=== PATIENT | female | born 1955 | race Caucasian/White ===

== ENCOUNTER 2020-08-18 08:13 | Day surgery (SDC) | payer OTHER, SELFPAY ==
[2020-08-13 14:58] VITALS: BMI 37.7
--- NOTE | 2020-08-14 08:47 | HO.ANESPROP2 ---
Documented by User: Indu Bañuelos 08/14/20 08:53 HPI - Anesthesia Eval Consult details Narrative: 64yo F for colonoscopy: screening [facility] Past Medical History Medical History (Updated 08/18/20 @ 09:45 by Deborah Stewart) Arthritis Back pain Cerebral aneurysm Heartburn History of Price's palsy Increased BMI (body mass index) Leaky heart valve Peripheral neuropathy PONV (postoperative nausea and vomiting) Seasonal allergies Sleep apnea Venous insufficiency of lower extremity Wrist fracture, left Family History Family History (Updated 08/13/20 @ 15:01 by Elle Barron) Other PONV (postoperative nausea and vomiting) Surgical History Surgical History (Updated 08/13/20 @ 14:54 by Elle Barron) Hx of colonoscopy S/P right knee arthroscopy Social History Social History Smoking Status: Former smoker Smoking Quit Date: 1999 Use of substances other than those prescribed or required for medical reasons: No Advance Directives: No Advance Directives Information Provided: No Advance Directives on File: No Meds Allergies Allergy/AdvReac Type Severity Reaction Status Date / Time levofloxacin [From Levaquin] Allergy Rash Verified 08/13/20 14:55 Home Medications Medication Instructions Recorded Confirmed Type calcium 600 mg PO DAILY 08/13/20 08/13/20 History glucosamine sulfate [Glucosamine] 750 mg PO DAILY 08/13/20 08/13/20 History Exam Exam Date and Time: August 14, 2020 0847 Height,Weight and Vital Signs: Height 5 ft 10 in Weight 119.295 kg Narrative Narrative: ECHO 04/2020: Mild AR, Mild TR, trace to mild MR, LVEF 60-65%, no RWMA, Gr 1 DD Assessment and Plan Assessment Anesthesia Assessment: Chart Reviewed Documented by User: Deborah Stewart 08/18/20 09:47 [facility] Past Medical History Medical History (Updated 08/18/20 @ 09:45 by Deborah Stewart) Arthritis Back pain Cerebral aneurysm Heartburn History of Price's palsy Increased BMI (body mass index) Leaky heart valve Peripheral neuropathy PONV (postoperative nausea and vomiting) Seasonal allergies Sleep apnea Venous insufficiency of lower extremity Wrist fracture, left Family History Family History (Updated 08/13/20 @ 15:01 by Elle Barron) Other PONV (postoperative nausea and vomiting) Surgical History Surgical History (Updated 08/13/20 @ 14:54 by Elle Barron) Hx of colonoscopy S/P right knee arthroscopy History of Problems with Anesthesia: No Social History Social History Smoking Status: Former smoker Smoking Quit Date: 1999 Use of substances other than those prescribed or required for medical reasons: No Advance Directives: No Advance Directives Information Provided: No Advance Directives on File: No Meds Allergies Allergy/AdvReac Type Severity Reaction Status Date / Time levofloxacin [From Levaquin] Allergy Rash Verified 08/13/20 14:55 Home Medications Medication Instructions Recorded Confirmed Type calcium 600 mg PO DAILY 08/13/20 08/13/20 History glucosamine sulfate [Glucosamine] 750 mg PO DAILY 08/13/20 08/13/20 History Exam Height,Weight and Vital Signs: Vital Signs Temp Pulse Resp BP Pulse Ox 08/18/20 09:35 98.7 F 82 16 153/84 H 98 Airway Mallampati Class: II TM Dist: >3cm Neck ROM: Full Partial: Lower (Permanent bridge) Heart: RRR. No murmur heard Lungs: CTAB Assessment and Plan Assessment Anesthesia Assessment: Anesthesia Plan Discussed and Chart Reviewed Final Anesthetic Review NPO: Yes ASA Class: III Final Preanesthetic Review: No Changes in Pt Med Stat, Meds/Allgs Chart Reviewed, Consent Obtained/Reviewed and Anes Risks/Benef Reviewed Patient Risk: Intermediate Procedure Risk: Low Anesthetic Plan Anesthetic Plan: MAC: Disposition: Standard PACU
[2020-08-18] MEDS: Lactated Ringers 1,000 ML 100 ML IVCONT (09:02)
[2020-08-18 09:35] VITALS: BP 153/84; PULSE 82; RESP 16; TEMP 37.1; O2SAT 98
--- NOTE | 2020-08-18 10:16 | P.CONAN_ITS ---
[facility] Past Medical History Medical History Arthritis Back pain Cerebral aneurysm Heartburn History of Price's palsy Increased BMI (body mass index) Leaky heart valve Peripheral neuropathy PONV (postoperative nausea and vomiting) Seasonal allergies Sleep apnea Venous insufficiency of lower extremity Wrist fracture, left Family History Family History Other PONV (postoperative nausea and vomiting) Surgical History Surgical History Hx of colonoscopy S/P right knee arthroscopy Social History Social History Smoking Status: Former smoker Smoking Quit Date: 1999 Use of substances other than those prescribed or required for medical reasons: No Advance Directives: No Advance Directives Information Provided: No Advance Directives on File: No Meds Allergies Allergy/AdvReac Type Severity Reaction Status Date / Time levofloxacin [From Levaquin] Allergy Rash Verified 08/13/20 14:55 Home Medications Medication Instructions Recorded Confirmed Type calcium 600 mg PO DAILY 08/13/20 08/13/20 History glucosamine sulfate [Glucosamine] 750 mg PO DAILY 08/13/20 08/13/20 History Exam Exam Date and Time: August 18, 2020 1016 Height,Weight and Vital Signs: Height 5 ft 10 in Weight 119.295 kg Last Vital Signs Temp 98.7 F 08/18/20 09:35 Pulse 82 08/18/20 09:35 Resp 16 08/18/20 09:35 BP 153/84 H 08/18/20 09:35 Pulse Ox 98 08/18/20 09:35 Airway Mallampati Class: III TM Dist: >3cm Neck ROM: Full
[2020-08-18 10:46] VITALS: BP 136/72; PULSE 86; RESP 16; TEMP 37.3; O2SAT 97
[2020-08-18] MEDS: Acetaminophen 325 MG TABLET 650 MG PO (10:58)
[2020-08-18 11:01] VITALS: BP 144/84; PULSE 76; RESP 16; O2SAT 97
--- NOTE | 2020-08-18 11:12 | OP_ITS ---
SURGEON: Felix Rich MD INDICATIONS: The patient presents for evaluation of colorectal cancer screening. Full consent has been obtained from her for this, including risks of bleeding and perforation. PREOPERATIVE DIAGNOSIS: Colorectal cancer screening. POSTOPERATIVE DIAGNOSIS: PROCEDURE PERFORMED: Colonoscopy to cecum and terminal ileum. ESTIMATED BLOOD LOSS: COMPLICATIONS: ANESTHESIA: Monitored anesthesia care. ASSISTANTS: SPECIMENS: POSTOPERATIVE DIAGNOSES: Colorectal cancer screening, mild sigmoid diverticulosis, internal hemorrhoids. DESCRIPTION OF PROCEDURE: The patient was placed in the left lateral decubitus position. The digital rectal exam revealed no abnormalities. The Olympus video pediatric colonoscope was entered into the rectum and advanced to the cecum with the assistance of abdominal wall pressure. Once in the cecum, I did identify normal-appearing cecal pouch with appendiceal orifice. The ileocecal valve had normal mucosa, but did appear somewhat lipomatous. It was quite soft with normal mucosa. The terminal ileum was cannulated and appeared normal. The scope was withdrawn back in the colon. The entire cecum otherwise appeared normal. The scope was slowly withdrawn assessing all mucosal surfaces carefully. Preparation was excellent. I did not visualize any sign of polyps, colitis, nor angiodysplasia. There was a mild amount of sigmoid diverticulosis. In the rectum, scope was retroflexed visualizing internal hemorrhoids, but no other pathology. The rectal mucosa appeared normal. The scope was straightened out and withdrawn from the patient. She tolerated procedure well and was returned to the recovery area in stable condition. IMPRESSION: 1. Sigmoid diverticulosis. 2. Internal hemorrhoids. 3. Lipomatous ileocecal valve. PLAN: Given her negative exam and negative family history, I would recommend a followup colonoscopy in 10 years for further screening. She was advised that she could resume her aspirin and fish oil today. MD ALECIA Matamoros/ABDIRAHMAN / [phone]
[2020-08-18 11:13] VITALS: BP 137/71; PULSE 58; RESP 18; TEMP 37.3; O2SAT 100
--- NOTE | 2020-08-18 11:49 | HO.POSTANES ---
Post Anesthesia Evaluation Post Anesthesia Evaluation Vital Signs: Vital Signs Temp Pulse Resp BP Pulse Ox 08/18/20 11:13 99.2 F 58 18 137/71 100 08/18/20 11:01 76 16 144/84 H 97 08/18/20 10:46 99.2 F 86 16 136/72 97 08/18/20 09:35 98.7 F 82 16 153/84 H 98 Anesthesia: Monitored Mental Status: Awake Pain Control: Satisfactory Nausea/Vomiting: None Hydration: Adequate Anesthesia-Related Issues: No Anes. Related Issues
--- NOTE | 2020-08-18 15:45 | PM.OP ---
Brief Operative Note Date of procedure: 08/18/20 Pre-op diagnosis: Screening Post-op diagnosis: other (Diverticulosis, Internal hemorrhoids) Procedure: Colonoscopy to cecum and TI Surgeon: Felix Rich Anesthesia: MAC Estimated blood loss (mL): 5.0 Pathology: none sent Condition: stable Disposition: PACU
== END 2020-08-18 12:36 | disposition home or self-care (01) ==
PROVIDERS: PCP Internal Medicine; Visit Provider Internal Medicine
PROC: 0DJD8ZZ Inspection of Lower Intestinal Tract, Via Natural or Artificial Opening Endoscopic (ICD-10-PCS; CPT 45378; principal; 2020-08-18 09:50)
DX: Z12.11 Encounter for screening for malignant neoplasm of colon (principal); K57.30 Diverticulosis of large intestine without perforation or abscess without bleeding; K64.8 Other hemorrhoids; D17.5 Benign lipomatous neoplasm of intra-abdominal organs; Z79.82 Long term (current) use of aspirin; Z87.891 Personal history of nicotine dependence; Z88.8 Allergy status to other drugs, medicaments and biological substances; Z79.899 Other long term (current) drug therapy
CPT/HCPCS: 45378